=== PATIENT | female | born 1980 | race Caucasian/White ===

== ENCOUNTER 2021-05-13 01:46 | Emergency (ER) | payer OTHER ==
[~2021-05-13] VITALS: Ht 203.2 cm; Wt 81.7 kg
[2021-05-13 01:47] VITALS: BP 133/84
[2021-05-13] MEDS ORDERED: ACETAMINOPHEN PO (01:49)
[2021-05-13] MEDS ORDERED: XANAX 0.25 MG0.25 MG PO (01:51)
[2021-05-13] MEDS ORDERED: AUGMENTIN 875-1 EACH PO (02:04)
== END 2021-05-13 02:30 | disposition home or self-care (01) ==
LOC: ER 01:46
DX: S81.011A Laceration without foreign body, right knee, initial encounter (principal); Z79.899 Other long term (current) drug therapy; W54.0XXA Bitten by dog, initial encounter; Y93.89 Activity, other specified; Y92.89 Other specified places as the place of occurrence of the external cause; Y99.8 Other external cause status